=== PATIENT | female | born 1990 | race Caucasian/White ===

== ENCOUNTER 2017-05-09 13:15 | Emergency (ER) | payer BC, OTHER ==
[2017-05-09 13:23] VITALS: BP 128/74
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
== END 2017-05-09 13:58 | disposition home or self-care (01) ==
LOC: ER 13:15
DX: S39.012A Strain of muscle, fascia and tendon of lower back, initial encounter (principal); M70.62 Trochanteric bursitis, left hip; M62.830 Muscle spasm of back; V43.52XA Car driver injured in collision with other type car in traffic accident, initial encounter
CPT/HCPCS: 99283